=== PATIENT | female | born 1995 | race Caucasian/White ===

== ENCOUNTER 2016-07-09 19:44 | Inpatient (IN) | payer BC ==
[2016-07-09 20:52] LABS: ROM Internal QC QC Line Present
[2016-07-09 21:17] LABS: Hematocrit 42 % (35-47); Hemoglobin 13.9 g/dl (12.0-16.0); Mean Corpuscular HGB Conc 33 g/dl (31-36); Mean Corpuscular Hemoglobin 32 pg (27-31); Mean Corpuscular Volume 97 fL (80-97); Mean Platelet Volume 8 um3 (7.4-10.4); Red Blood Count 4.29 10^6/ul (4.0-5.4); Red Cell Distribution Width 13 % (10.5-15); White Blood Count 18.3 10^3/ul (3.5-10.8)
[2016-07-09] MEDS ORDERED: OBEPIDURAL* 250 ML ONE (21:29)
[2016-07-09] MEDS ORDERED: Phenylephrine IV* 40 MCG/ML 10 ML SYRINGE IV PUSH PRN ×2 (22:19)
[2016-07-09] MEDS ORDERED: OBEPIDURAL* 250 ML EPIDURAL SCH (23:00)
[2016-07-10] MEDS ORDERED: Oxytocin in LR* 20 UNITS/1,000 ML BAG IVPB ONE (03:29)
[2016-07-10] MEDS ORDERED: Glycerin ADULT SUPP PR PRN (03:45)
[2016-07-10] MEDS ORDERED: Dibucaine 1% 28.35 GM TUBE PR PRN (03:45)
[2016-07-10] MEDS ORDERED: Acetaminophen TAB* 325 MG PO PRN (03:45)
[2016-07-10] MEDS ORDERED: Witch Hazel PAD* JAR TOPICAL PRN (03:45)
[2016-07-10] MEDS ORDERED: Oxytocin in LR* 20 UNITS/1,000 ML BAG IVPB SCH (04:00)
[2016-07-10] MEDS: Ibuprofen TAB* 600 MG PO PRN ×3 (05:57→18:18)
[2016-07-10] MEDS: Docusate CAP* 100 MG PO SCH ×3 (08:56→20:51)
[2016-07-10] MEDS: Simethicone CHEW TAB* 80 MG PO SCH (19:22)
[2016-07-11] MEDS: Ibuprofen TAB* 600 MG PO PRN ×4 (01:01→21:06)
[2016-07-11 08:49] LABS: Hematocrit 35 % (35-47); Hemoglobin 11.8 g/dl (12.0-16.0); Mean Corpuscular HGB Conc 34 g/dl (31-36); Mean Corpuscular Hemoglobin 33 pg (27-31); Mean Corpuscular Volume 98 fL (80-97); Mean Platelet Volume 8 um3 (7.4-10.4); Red Blood Count 3.59 10^6/ul (4.0-5.4); Red Cell Distribution Width 14 % (10.5-15)
[2016-07-11] MEDS ORDERED: Ferrous Gluconate TAB* 324 MG TAB PO SCH (09:00)
[2016-07-11] MEDS: Docusate CAP* 100 MG PO SCH ×3 (10:03→21:07)
[2016-07-12 08:39] VITALS: BP 113/62
[2016-07-12] MEDS: Docusate CAP* 100 MG PO SCH (09:00)
== END 2016-07-12 11:49 | disposition home or self-care (01) | DRG 560 ==
LOC: MCHOBOUT 19:44 → MCHOB 21:18
PROVIDERS: ADMIT Obstetrics & Gynecology; ATTEND Obstetrics & Gynecology
PROC: 10E0XZZ Delivery of Products of Conception, External Approach (ICD-10-PCS; principal; 2016-07-10)
DX: O48.0 Post-term pregnancy (principal); O99.344 Other mental disorders complicating childbirth; F32.9 Major depressive disorder, single episode, unspecified; G43.909 Migraine, unspecified, not intractable, without status migrainosus; F41.9 Anxiety disorder, unspecified; Z3A.41 41 weeks gestation of pregnancy; Z37.0 Single live birth
CPT/HCPCS: 36415; 84112; 85025; 85027; 86850; 86900; 86901; A9270-GY

== ENCOUNTER → 2017-01-15 15:21 | Emergency (ER) | payer BC ==
[~2017-01-15 15:21] MED LIST: LORazepam TAB(*) 1 MG PO ONE; Sulfamethox/Trimethoprim DS 800/160* TAB PO ONE
[2017-01-15 17:10] LABS: Urine Bacteria 1+ (Absent); Urine Bilirubin Negative (Negative); Urine Glucose Negative (Negative); Urine Nitrite Negative (Negative)
[2017-01-15 17:12] LABS: Hematocrit 41 % (35-47); Hemoglobin 13.9 g/dl (12.0-16.0); Mean Corpuscular HGB Conc 34 g/dl (31-36); Mean Corpuscular Hemoglobin 32 pg (27-31); Mean Corpuscular Volume 94 fL (80-97); Mean Platelet Volume 8 um3 (7.4-10.4); Red Blood Count 4.34 10^6/ul (4.0-5.4); Red Cell Distribution Width 13 % (10.5-15); White Blood Count 7.7 10^3/ul (3.5-10.8)
[2017-01-15 17:14] LABS: Benzodiazepine Urine Screen None Detected (None Detect)
[2017-01-15 17:27] LABS: ALT 9 U/L (7-52); AST 15 U/L (13-39); Albumin 4.3 g/dL (3.2-5.2); Alkaline Phosphatase 53 U/L (34-104); Anion Gap 7 mmol/L (2-11); BUN/Creatinine Ratio 16.7 (8-20); Blood Urea Nitrogen 15 mg/dL (6-24); CO2 Carbon Dioxide 27 mmol/L (22-32); Calcium 9.9 mg/dL (8.6-10.3); Chloride 104 mmol/L (101-111); EGFR African American 101.6 (>60); Globulin 2.8 g/dL (2-4); Glucose 84 mg/dL (70-100); Potassium 3.6 mmol/L (3.5-5.0); Sodium 138 mmol/L (133-145); Total Protein 7.1 g/dL (6.4-8.9)
[2017-01-15 18:01] LABS: Acetaminophen < 15 mcg/mL; Alcohol < 10 mg/dL (<10); Salicylate < 2.50 mg/dL (<30)
[2017-01-15 18:15] LABS: TSH (Thyroid Stimulating Horm) 1.05 mcIU/mL (0.34-5.60)
--- NOTE | 2017-01-15 18:21 | ED ---
Gregoria Beasley Thomas, scribed for Gume Ortez MD on 01/15/17 at 1711 . Psychiatric Complaint - HPI Summary HPI Summary: The pt is a 21 y/o F referred from [facility] c/o a decreased desire to eat food for the last six months. When asked if she wants to harm herself, she responds that is pretty much what I am doing right now. She does not take laxatives. She does not have any medical complaints. She denies taking any medication recently or any other attempts to hurt herself. Last night, she had a discussion with her fianc about this long-standing issue , prompting an ED visit. PMHx: anorexia nervosa. PSHx: wisdom teeth removal. SHx : current smoker, no alcohol use, marijuana use. FHx: depression. - History Of Current Complaint Chief Complaint: EDMentalHealth Time Seen by Provider: 01/15/17 16:46 Hx Obtained From: Patient Onset/Duration: Lasting Weeks - onset 6 months ago, Still Present Timing: Constant Aggravating Factor(s): Nothing Alleviating Factor(s): Nothing Associated Signs And Symptoms: Positive: Appetite Change - decreased desire to eat food over the last six months Related History: Positive For: Prior Psychiatric Issues - Prior anorixia nervosa Has Suicidal: Denies: Thoughts - When asked if she wants to harm herself, she responds that is pretty much what I am doing right now. - Allergies/Home Medications Allergies/Adverse Reactions: Allergies Allergy/AdvReac Type Severity Reaction Status Date / Time No Known Allergies Allergy Verified 01/15/17 15:30 PMH/Surg Hx/FS Hx/Imm Hx Previously Healthy: No Endocrine/Hematology History: Denies: Hx Diabetes Psychiatric History: Reports: Hx Anxiety, Hx Eating Disorder - anorexia, Hx Depression - Surgical History Surgery Procedure, Year, and Place: wisdom teeth removal Infectious Disease History: Yes Infectious Disease History: Denies: Traveled Outside the [place] in Last 30 Days - Family History Known Family History: Positive: Other - Depression - Social History Occupation: Employed Full-time - at [employer] Alcohol Use: None Hx Substance Use: Yes Substance Use Type: Reports: Marijuana Hx Tobacco Use: Yes Smoking Status (MU): Current Every Day Smoker Have You Smoked in the Last Year: No Review of Systems Negative: Fever Psychological: Other - Decreased desire to eat (for last six months) All Other Systems Reviewed And Are Negative: Yes Physical Exam Triage Information Reviewed: Yes Vital Signs On Initial Exam: Initial Vitals Temp Pulse Resp BP Pulse Ox 98.1 F 72 16 128/73 98 01/15/17 15:30 01/15/17 15:30 01/15/17 15:30 01/15/17 15:30 01/15/17 15:30 Vital Signs Reviewed: Yes Appearance: Positive: Thin Skin: Positive: Warm, Skin Color Reflects Adequate Perfusion Head/Face: Positive: Normal Head/Face Inspection Eyes: Positive: EOMI ENT: Positive: Normal ENT inspection Neck: Positive: Nontender Respiratory/Lung Sounds: Positive: Clear to Auscultation, Breath Sounds Present Cardiovascular: Positive: RRR. Negative: Murmur Abdomen Description: Positive: Nontender Musculoskeletal: Positive: Normal, Strength/ROM Intact Neurological: Positive: Sensory/Motor Intact, Alert, Oriented to Person Place, Time, CN Intact II-III Psychiatric: Positive: Depressed - [place] Coma Scale Best Eye Response: 4 - Spontaneous Best Motor Response: 6 - Obeys Commands Best Verbal Response: 5 - Oriented Coma Scale Total: 15 Diagnostics - Vital Signs Vital Signs Temp Pulse Resp BP Pulse Ox 01/15/17 15:30 98.1 F 72 16 128/73 98 - Laboratory Lab Results: Lab Results 01/15/17 01/15/17 01/15/17 Range/Units 15:50 15:50 17:00 WBC (3.5-10.8) 10^3/ul RBC (4.0-5.4) 10^6/ul Hgb (12.0-16.0) g/dl Hct (35-47) % MCV (80-97) fL MCH (27-31) pg MCHC (31-36) g/dl RDW (10.5-15) % Plt Count (150-450) 10^3/ul MPV (7.4-10.4) um3 Neut % (Auto) (38-83) % Lymph % (Auto) (25-47) % [place] % (Auto) (1-9) % Eos % (Auto) (0-6) % Baso % (Auto) (0-2) % Absolute Neuts (auto) (1.5-7.7) 10^3/ul Absolute Lymphs (auto) (1.0-4.8) 10^3/ul Absolute Monos (auto) (0-0.8) 10^3/ul Absolute Eos (auto) (0-0.6) 10^3/ul Absolute Basos (auto) (0-0.2) 10^3/ul Absolute Nucleated RBC 10^3/ul Nucleated RBC % Sodium 138 (133-145) mmol/L Potassium 3.6 (3.5-5.0) mmol/L Chloride 104 (101-111) mmol/L Carbon Dioxide 27 (22-32) mmol/L Anion Gap 7 (2-11) mmol/L BUN 15 (6-24) mg/dL Creatinine 0.90 (0.51-0.95) mg/dL Est GFR ( Amer) 101.6 (>60) Est GFR (Non-Af Amer) 79.0 (>60) BUN/Creatinine Ratio 16.7 (8-20) Glucose 84 (70-100) mg/dL Calcium 9.9 (8.6-10.3) mg/dL Magnesium 2.0 (1.9-2.7) mg/dL Total Bilirubin 0.50 (0.2-1.0) mg/dL AST 15 (13-39) U/L ALT 9 (7-52) U/L Alkaline Phosphatase 53 (34-104) U/L Total Protein 7.1 (6.4-8.9) g/dL Albumin 4.3 (3.2-5.2) g/dL Globulin 2.8 (2-4) g/dL Albumin/Globulin Ratio 1.5 (1-3) TSH 1.05 (0.34-5.60) mcIU/mL Urine Color Adriana Urine Appearance Turbid Urine pH 7.0 (5-9) Ur Specific [place] 1.021 (1.010-1.030) Urine Protein 2+(100 mg/dl) H (Negative) Urine Ketones Trace H (Negative) Urine Blood Negative (Negative) Urine Nitrate Negative (Negative) Urine Bilirubin Negative (Negative) Urine Urobilinogen Positive H (Negative) Ur Leukocyte Esterase 3+ H (Negative) Urine WBC (Auto) 3+(>20/hpf) H (Absent) Urine RBC (Auto) Absent (Absent) Ur Squamous Epith Cells Present H (Absent) Ur Renal Epithelial Cell Present H (Absent) Urine Bacteria 1+ H (Absent) Urine Glucose Negative (Negative) Salicylates < 2.50 (<30) mg/dL Urine Opiates Screen None detected (None Detect) Acetaminophen < 15 mcg/mL Ur Barbiturates Screen None detected (None Detect) Ur Phencyclidine Scrn None detected (None Detect) Ur Amphetamines Screen None detected (None Detect) U Benzodiazepines Scrn None detected (None Detect) Urine Cocaine Screen Presumptive positive H (None Detect) U Cannabinoids Screen Presumptive positive H (None Detect) Serum Alcohol < 10 (<10) mg/dL 01/15/17 Range/Units 17:00 WBC 7.7 (3.5-10.8) 10^3/ul RBC 4.34 (4.0-5.4) 10^6/ul Hgb 13.9 (12.0-16.0) g/dl Hct 41 (35-47) % MCV 94 (80-97) fL MCH 32 H (27-31) pg MCHC 34 (31-36) g/dl RDW 13 (10.5-15) % Plt Count 249 (150-450) 10^3/ul MPV 8 (7.4-10.4) um3 Neut % (Auto) 51.0 (38-83) % Lymph % (Auto) 15.5 L (25-47) % [place] % (Auto) 9.9 H (1-9) % Eos % (Auto) 22.2 H (0-6) % Baso % (Auto) 1.4 (0-2) % Absolute Neuts (auto) 3.9 (1.5-7.7) 10^3/ul Absolute Lymphs (auto) 1.2 (1.0-4.8) 10^3/ul Absolute Monos (auto) 0.8 (0-0.8) 10^3/ul Absolute Eos (auto) 1.7 H (0-0.6) 10^3/ul Absolute Basos (auto) 0.1 (0-0.2) 10^3/ul Absolute Nucleated RBC 0.01 10^3/ul Nucleated RBC % 0.1 Sodium (133-145) mmol/L Potassium (3.5-5.0) mmol/L Chloride (101-111) mmol/L Carbon Dioxide (22-32) mmol/L Anion Gap (2-11) mmol/L BUN (6-24) mg/dL Creatinine (0.51-0.95) mg/dL Est GFR ( Amer) (>60) Est GFR (Non-Af Amer) (>60) BUN/Creatinine Ratio (8-20) Glucose (70-100) mg/dL Calcium (8.6-10.3) mg/dL Magnesium (1.9-2.7) mg/dL Total Bilirubin (0.2-1.0) mg/dL AST (13-39) U/L ALT (7-52) U/L Alkaline Phosphatase (34-104) U/L Total Protein (6.4-8.9) g/dL Albumin (3.2-5.2) g/dL Globulin (2-4) g/dL Albumin/Globulin Ratio (1-3) TSH (0.34-5.60) mcIU/mL Urine Color Urine Appearance Urine pH (5-9) Ur Specific [place] (1.010-1.030) Urine Protein (Negative) Urine Ketones (Negative) Urine Blood (Negative) Urine Nitrate (Negative) Urine Bilirubin (Negative) Urine Urobilinogen (Negative) Ur Leukocyte Esterase (Negative) Urine WBC (Auto) (Absent) Urine RBC (Auto) (Absent) Ur Squamous Epith Cells (Absent) Ur Renal Epithelial Cell (Absent) Urine Bacteria (Absent) Urine Glucose (Negative) Salicylates (<30) mg/dL Urine Opiates Screen (None Detect) Acetaminophen mcg/mL Ur Barbiturates Screen (None Detect) Ur Phencyclidine Scrn (None Detect) Ur Amphetamines Screen (None Detect) U Benzodiazepines Scrn (None Detect) Urine Cocaine Screen (None Detect) U Cannabinoids Screen (None Detect) Serum Alcohol (<10) mg/dL Result Diagrams: 01/15/17 17:00 01/15/17 17:00 Lab Statement: Any lab studies that have been ordered have been reviewed, and results considered in the medical decision making process. Course/Dx - Course Assessment/Plan: The pt is a 21 y/o F with a decreased desire to eat food for the last six months. She denies SI except that is what Im doing [by not eating ]. She denies medical complaints, recent medication use, or attempts to hurt herself. Bloodwork and UA were obtained. Urine drug screen is positive for cocaine and cannabinoids. - Differential Dx/Clinical Impression Provider Diagnosis: Anorexia nervosa, Suicidal ideation, UTI (urinary tract infection) Discharge - Discharge Plan Condition: Good Disposition: OTHER [facility]charge Disposition Comment[facility] Referrals: Katherine Cosme, DEMETRI [Primary Care Provider] - The documentation as recorded by the Gregoria woods Thomas accurately reflects the service I personally performed and the decisions made by me, Gume Ortez MD.
[2017-01-16 11:05] VITALS: BP 124/78
--- NOTE | 2017-01-17 03:04 | ED ---
Pat Beasley Alfonso, scribed for Anayeli Philippe MD on 01/15/17 at 1999 . Progress - Progress Note Progress Note: Reevaluation at 1955 after sign out [address] Dr[address] Ortez at change of shift. Plan for moving forward with a MHE discussed with the patient. She reports a migraine headache, photophobia, and anxiety. The patient is tearful. 0700: plan per ALBINO Perry, per Dr. Blood is to have pt follow up as an outpt with the [facility]. Course/Dx - Diagnoses Provider Diagnoses: Anorexia nervosa, Suicidal ideation, UTI (urinary tract infection) The documentation as recorded by the Pat woods Alfonso accurately reflects the service I personally performed and the decisions made by , Anayeli Philippe MD.
--- NOTE | 2017-01-17 20:30 | PN ---
Progress Note - Progress Note Date of Service: 01/15/17 Note: preliminary results grew >100,000 of gram negative bacilli. Patient was diagnosed and treated while in ED with bactrim for UTI. however does not appear any prescription was sent to pharmacy to take outpatient as she was later discharged. attempted to call patient at 3:00pm and left voicemail. patient did not call back. will send bactrim script for UTI to pharmacy and send letter to patient. will also wait for final sensitivity results and attempt to recall.
== END ==
LOC: ED 15:21
DX: F50.00 Anorexia nervosa, unspecified (principal); R45.851 Suicidal ideations; N39.0 Urinary tract infection, site not specified; F41.9 Anxiety disorder, unspecified; F32.9 Major depressive disorder, single episode, unspecified; F17.200 Nicotine dependence, unspecified, uncomplicated; B96.89 Other specified bacterial agents as the cause of diseases classified elsewhere
CPT/HCPCS: 36415; 80053; 80307; 80320; 80329; 81003; 81015; 83735; 84443; 84702; 85025; 87077; 87086; 87186; 99283; A9270-GY; G0480

== ENCOUNTER 2017-07-27 09:30 | Emergency (ER) | payer BC ==
[2017-07-27] MEDS ORDERED: NS 0.9% 1000 ML* 1,000 ML IV ONE (11:29)
[2017-07-27] MEDS ORDERED: Ondansetron INJ* 2 MG/ML VIAL IV ONE (11:29)
--- NOTE | 2017-07-27 12:05 | RAD ---
HISTORY: Pelvic pain COMPARISONS: None TECHNIQUE: Multiple transverse and longitudinal ultrasound images were obtained of the pelvis using grayscale, color Doppler, and spectral Doppler imaging using the endovaginal transducer. FINDINGS: UTERUS: The uterus measures 7.2 x 3.5 x 4.9 cm. The uterus is normal in shape, size, contour, and echotexture. ENDOMETRIUM: The endometrial stripe is smooth. The endometrium measures 0.4 cm in thickness. CUL-DE-SAC: There is no free fluid within the cul-de-sac. RIGHT OVARY: The right ovary measures 2.5 x 1.7 x 2.5 cm. Multiple follicles are noted. Normal arterial and venous waveforms are identifiable within the ovary on spectral Doppler imaging. LEFT OVARY: The left ovary measures 3.9 x 1.9 x 3 cm. Multiple follicles are noted. Normal arterial and venous waveforms are identifiable within the ovary on spectral Doppler imaging. BLADDER: The bladder is not well visualized. OTHER: None IMPRESSION: UNREMARKABLE ULTRASOUND OF THE PELVIS. NO SONOGRAPHIC FEATURES OF TORSION. PLEASE NOTE THAT PARTIAL OR INTERMITTENT TORSION MAY BE SONOGRAPHICALLY NORMAL.
[2017-07-27] MEDS ORDERED: Ketorolac INJ* 30 MG/ML 1 ML VIAL IV PUSH ONE (12:07)
[2017-07-27] MEDS ORDERED: Ketorolac INJ* 30 MG/ML 1 ML VIAL ONE (12:09)
--- NOTE | 2017-07-27 12:10 | ED ---
GI/ HPI - HPI Summary HPI Summary: 21-year-old female presents with pelvic pain for the past week. She states that it is in bilateral lower quadrant and radiates to her back. She denies any pain urination. She admits to some vaginal discharge. She denies any frequency urgency. She states they're treating her for UTI; she does not have one. She is currently on bactrim. States she had normal ultrasound of her kidneys. She's never had this pain before. She states the pain comes and goes. She has had a normal appetite. She admits to nausea but denies any vomiting. She denies any diarrhea constipation. Denies any previous surgeries. - History of Current Complaint Chief Complaint: EDAbdPain Time Seen by Provider: 07/27/17 11:07 Stated Complaint: ABD PAIN-CIFUENTES SENT Pain Intensity: 6 - Allergy/Home Medications Allergies/Adverse Reactions: Allergies Allergy/AdvReac Type Severity Reaction Status Date / Time sulfamethoxazole Allergy Vomiting Verified 07/27/17 11:39 [From Bactrim] trimethoprim [From Bactrim] Allergy Vomiting Verified 07/27/17 11:39 PMH/Surg Hx/FS Hx/Imm Hx Endocrine/Hematology History: Denies: Hx Diabetes Psychiatric History: Reports: Hx Anxiety, Hx Eating Disorder - Never officially diagnosed, Hx Depression - Surgical History Surgery Procedure, Year, and Place: wisdom teeth removal Infectious Disease History: No Infectious Disease History: Denies: Traveled Outside the [place] in Last 30 Days - Family History Known Family History: Positive: Other - Depression - Social History Alcohol Use: None Hx Substance Use: Yes Substance Use Type: Reports: Marijuana Hx Tobacco Use: Yes Smoking Status (MU): Current Every Day Smoker Have You Smoked in the Last Year: No Review of Systems Negative: Fever Negative: Chest Pain Negative: Shortness Of Breath Positive: Abdominal Pain, Nausea. Negative: Vomiting, Diarrhea Negative: dysuria All Other Systems Reviewed And Are Negative: Yes Physical Exam Triage Information Reviewed: Yes Vital Signs On Initial Exam: Initial Vitals Temp Pulse Resp BP Pulse Ox 98.3 F 66 16 105/65 97 07/27/17 09:35 07/27/17 09:35 07/27/17 09:35 07/27/17 09:35 07/27/17 09:35 Vital Signs Reviewed: Yes Appearance: Positive: Well-Appearing Skin: Positive: Warm, Dry Head/Face: Positive: Normal Head/Face Inspection Eyes: Positive: Normal, Conjunctiva Clear Respiratory/Lung Sounds: Positive: Clear to Auscultation, Breath Sounds Present Cardiovascular: Positive: Normal, RRR Abdomen Description: Positive: Soft, Other: - tenderness suprapubic greatest tenderness, tenderness LLQ, neg obturator Bowel Sounds: Positive: Present Pelvic Exam: Positive: External Exam Normal, Speculum Exam Normal, Blood, Tender w/ Cervical Motion Musculoskeletal: Positive: Normal Neurological: Positive: Normal Psychiatric: Positive: Normal Diagnostics - Vital Signs Vital Signs Temp Pulse Resp BP Pulse Ox 07/27/17 09:35 98.3 F 66 16 105/65 97 - Laboratory Result Diagrams: 07/27/17 12:03 07/27/17 12:03 Lab Statement: Any lab studies that have been ordered have been reviewed, and results considered in the medical decision making process. - Ultrasound No standard instances Ultrasound Interpretation: No Acute Changes Ultrasound Interpretation Completed By: Radiologist Re-Evaluation - Re-Evaluation First Eval Re-Evaluation Time: 12:25 Change: Improved Comment: no pain in RLQ GIGU Course/Dx - Course Course Of Treatment: 21-year-old female presents with pelvic pain for the past week. She states that it is in bilateral lower quadrant and radiates to her back. She denies any pain urination. She admits to some vaginal discharge. She denies any frequency urgency. She states they're treating her for UTI; she does not have one. She is currently on bactrim. States she had normal ultrasound of her kidneys. She's never had this pain before. She states the pain comes and goes. She has had a normal appetite. She admits to nausea but denies any vomiting. She denies any diarrhea constipation. Denies any previous surgeries. On exam tenderness suprapubic and left lower quadrant. Genital abdominal ultrasound normal. Labs white blood cell count normal. CRP elevated. On pelvic has positive cervical motion tenderness. Has bloody vaginal discharge. Urine possible UTI but likely contaminant but we'll treat with a gram of Rocephin to cover. Patient is still currently on Bactrim. We' ll treat with doxycycline and Flagyl for PID. Do not suspect appendicitis this pain is not really in the right lower quadrant. Lab work does not have a wbc elevated. Pain is likely due to the PID. Patient understands and agrees with plan. - Diagnoses Differential Diagnoses - Female: Gastroenteritis (Viral), Ovarian Torsion, Pelvic Inflammatory Disease, Urinary Tract Infection Provider Diagnoses: Abdominal pain, PID (pelvic inflammatory disease) Discharge - Sign-Out/Discharge Documenting (check all that apply): Discharge - Discharge Plan Condition: Good Disposition: HOME Prescriptions: DOXYcycline CAP(*) [DOXYcycline 100MG CAP(*)] 100 mg PO BID #27 cap metroNIDAZOLE [Flagyl] 500 mg PO BID #27 tablet Ondansetron ODT TAB* [Zofran 4 MG Odt TAB*] 4 mg PO Q6H PRN #16 tab.odt PRN Reason: Nausea Patient Education Materials: Pelvic Inflammatory Disease (ED) Referrals: Katherine Cosme NP [Primary Care Provider] - Additional Instructions: Take Flagyl twice a day for 14 days Take doxycycline twice a day for 14 days, wear sunscreen and take with food Take Zofran every 6 hours for nausea Take Tylenol or ibuprofen for fever and pain every 6 hours Follow up with primary care physician within 5 days Return to ED if develop any new or worsening symptoms - Billing Disposition and Condition Condition: GOOD Disposition: HOME
[2017-07-27 12:14] LABS: ABS Basophils 0.1 10^3/ul (0-0.2); ABS Eosinophils 0.1 10^3/ul (0-0.6); ABS Lymphocytes 1.9 10^3/ul (1.0-4.8); ABS Monocytes 0.7 10^3/ul (0-0.8); ABS Neutrophils 4.4 10^3/ul (1.5-7.7); ABS Nucleated RBC 0 10^3/ul; Eosinophil % 1.6 % (0-6); Hematocrit 38 % (35-47); Hemoglobin 13.3 g/dl (12.0-16.0); Lymphocyte % 26.4 % (25-47); Mean Corpuscular HGB Conc 35 g/dl (31-36); Mean Corpuscular Hemoglobin 33 pg (27-31); Mean Corpuscular Volume 96 fL (80-97); Mean Platelet Volume 7.5 um3 (7.4-10.4); Nucleated Red Blood Cells % 0.1; Platelet Count 356 10^3/ul (150-450); Red Blood Count 4.01 10^6/ul (4.0-5.4); Red Cell Distribution Width 14 % (10.5-15); White Blood Count 7.1 10^3/ul (3.5-10.8)
[2017-07-27 12:32] LABS: Urine Appearance Cloudy; Urine Blood 3+ (Negative); Urine Color Yellow; Urine Ketones Negative (Negative); Urine Protein Negative (Negative); Urine Specific Gravity 1.004 (1.010-1.030); Urine Urobilinogen Negative (Negative)
[2017-07-27] MEDS ORDERED: metroNIDAZOLE TAB* 250 MG PO ONE (12:37)
[2017-07-27] MEDS ORDERED: DOXYcycline CAP(*) 100 MG PO ONE (12:37)
[2017-07-27] MEDS ORDERED: cefTRIAXone(*) 1 GM in NS 0.9% 50 ML* 50 ML IVPB ONE (12:37)
[2017-07-27] MEDS ORDERED: Potassium Chlor TAB* 20 MEQ TAB.ER PO ONE (13:03)
[2017-07-27 13:52] VITALS: BP 109/69
== END 2017-07-27 13:51 | disposition home or self-care (01) ==
LOC: ED 09:30
DX: N73.9 Female pelvic inflammatory disease, unspecified (principal); F17.200 Nicotine dependence, unspecified, uncomplicated
CPT/HCPCS: 36415; 76830; 80053; 81003; 81015; 83690; 84702; 85025; 86141; 87086; 87480; 87491; 87510; 87591; 87661; 96360; 96374; 96375; 99283; A9270-GY; J0696; J1885; J2405

== ENCOUNTER 2018-12-02 18:38 | Emergency (ER) | payer BC ==
--- NOTE | 2018-12-02 19:03 | ED ---
Throat Pain/Nasal Congestion - HPI Summary HPI Summary: Patient complains of right eye pain 3 hours and possible right eye infection or abrasion from wearing contacts. Denies trauma,. Denies any other pain injury or symptoms. - History of Current Complaint Chief Complaint: EDEyeProblem Time Seen by Provider: 12/02/18 18:58 Hx Obtained From: Patient Onset/Duration: Sudden Onset, Lasting Hours Severity: Moderate Associated Signs And Symptoms: Positive: Negative Cough: None - Allergies/Home Medications Allergies/Adverse Reactions: Allergies Allergy/AdvReac Type Severity Reaction Status Date / Time sulfamethoxazole Allergy Vomiting Verified 07/27/17 11:39 [From Bactrim] trimethoprim [From Bactrim] Allergy Vomiting Verified 07/27/17 11:39 PMH/Surg Hx/FS Hx/Imm Hx Endocrine/Hematology History: Denies: Hx Diabetes Cardiovascular History: Denies: Hx Pacemaker/ICD History: Denies: Hx Dialysis Sensory History: Denies: Hx Eye Prosthesis Opthamlomology History: Denies: Hx Legally Blind EENT History: Denies: Hx Deafness Neurological History: Denies: Hx Dementia Psychiatric History: Reports: Hx Anxiety, Hx Eating Disorder - Never officially diagnosed, Hx Depression - Surgical History Surgery Procedure, Year, and Place: wisdom teeth removal Infectious Disease History: No Infectious Disease History: Denies: Traveled Outside the [place] in Last 30 Days - Family History Known Family History: Positive: Other - Depression - Social History Alcohol Use: None Hx Substance Use: Yes Substance Use Type: Reports: Marijuana Hx Tobacco Use: Yes Smoking Status (MU): Current Every Day Smoker Have You Smoked in the Last Year: No Review of Systems Constitutional: Negative Positive: Other ENT: Negative Cardiovascular: Negative Respiratory: Negative Gastrointestinal: Negative Genitourinary: Negative Musculoskeletal: Negative Skin: Negative Neurological: Negative Psychological: Normal All Other Systems Reviewed And Are Negative: Yes Physical Exam - Summary Physical Exam Summary: Corneal abrasion noted on exam of right eye. No discharge, foreign body noted. Triage Information Reviewed: Yes Vital Signs On Initial Exam: Initial Vitals Temp Pulse Resp BP Pulse Ox 99.2 F 81 18 138/105 100 12/02/18 18:41 12/02/18 18:41 12/02/18 18:41 12/02/18 18:41 12/02/18 18:41 Vital Signs Reviewed: Yes Appearance: Positive: Well-Appearing Skin: Positive: Warm Head/Face: Positive: Normal Head/Face Inspection Eyes: Positive: EOMI, ROXANN, Conjunctiva Inflammed. Negative: Discharge Neck: Positive: Supple Respiratory/Lung Sounds: Positive: Clear to Auscultation Cardiovascular: Positive: Normal Abdomen Description: Positive: Nontender Musculoskeletal: Positive: Strength/ROM Intact Neurological: Positive: Normal Psychiatric: Positive: Normal AVPU Assessment: Alert - [place] Coma Scale Best Eye Response: 4 - Spontaneous Best Motor Response: 6 - Obeys Commands Best Verbal Response: 5 - Oriented Coma Scale Total: 15 Diagnostics - Vital Signs Vital Signs Temp Pulse Resp BP Pulse Ox 12/02/18 18:41 99.2 F 81 18 138/105 100 - Laboratory Lab Statement: Any lab studies that have been ordered have been reviewed, and results considered in the medical decision making process. EENT Course/Dx - Course Course Of Treatment: Patient complains of right eye pain 3 hours and possible right eye infection or abrasion from wearing contacts. Denies trauma,. Denies any other pain injury or symptoms. Vital signs within normal limits. Positive corneal abrasion on exam. Gentamicin ophthalmic solution 2 drops every 4 hours. Follow-up with ophthalmology - Diagnoses Provider Diagnoses: Corneal abrasion, right Discharge - Sign-Out/Discharge Documenting (check all that apply): Patient Departure Patient Received Moderate/Deep Sedation with Procedure: No - Discharge Plan Condition: Stable Disposition: HOME Patient Education Materials: Corneal Abrasion (ED) Referrals: Katherine Cosme NP [Primary Care Provider] - Filippo Swan MD [Medical Doctor] - Additional Instructions: 2 drops antibiotic solution in right eye every 4 hours for 5 days. 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 Swan for further evaluation of right eye. - Billing Disposition and Condition Condition: STABLE Disposition: Home
[2018-12-02] MEDS ORDERED: Tetracaine 0.5% OPTH.SOL 4 ML* 1 DROP BTL RIGHT EYE ONE (19:25)
[2018-12-02] MEDS ORDERED: Tetracaine 0.5% OPTH.SOL 4 ML* 1 DROP BTL SCH (19:30)
[2018-12-02] MEDS: Fluorescein Sodium TOPICAL* 1 MG TEST STRIP OPHTHALMIC ONE ×2 (19:31→19:45)
[2018-12-02] MEDS ORDERED: Gentamicin 0.3% OPHTH.SOLN* 5 ML BTL RIGHT EYE SCH (20:00)
[2018-12-02 20:02] VITALS: BP 116/80
== END 2018-12-02 20:01 | disposition home or self-care (01) ==
LOC: ED 18:38
DX: S05.01XA Injury of conjunctiva and corneal abrasion without foreign body, right eye, initial encounter (principal); X58.XXXA Exposure to other specified factors, initial encounter; Y92.9 Unspecified place or not applicable; F41.9 Anxiety disorder, unspecified; F17.210 Nicotine dependence, cigarettes, uncomplicated; Z88.1 Allergy status to other antibiotic agents; Z88.2 Allergy status to sulfonamides
CPT/HCPCS: 99282; A9270-GY

== ENCOUNTER 2019-02-14 14:13 | Emergency (ER) | payer BC ==
--- OUTSIDE RECORDS SUMMARY | 2019-02-14 14:50 | XMS REPORT | Summary of Care ---
:1995 Author Organization [facility] Address [address] [facility] [place] [id number] Care Team Providers Name Role Phone Mello Caballero MD Primary Care Provider Reason for Visit Reason Comments Urinary Tract Infection Panic Attack Encounter Details Date Type Department Care Team Description 12/17/2018 Office Visit [facility] Kathernie Cosme, Panic attacks ( Primary Dx); Practice [facility] Anxiety; [address] Acute [place]stit[place] [address] [phone] Allergies No Known Allergiesdocumented as of this encounter (statuses as of 12/17/2018) Medications Medication Sig Dispensed Refills Start Date End Date Status sumatriptan (IMITREX) Take 1 Tab by 30 Tab 0 07/12/2017 Active 100 MG Oral mouth NEEDED TabIndications: (headache). Take Migraine with aura and at first sign of without status headache - migrainosus, not repeat in 2 intractable hours if needed trazodone (DESYREL) 50 Take 1 Tab by 30 Tab 3 06/27/2018 Active MG Oral Tab mouth EVERY BEDTIME. ciprofloxacin (CIPRO) Take 1 Tab by 10 Tab 0 12/17/2018 12/22/2018 Active 250 MG Oral mouth TWICE TabIndications: Acute DAILY for 5 cystitis without days. hematuria sertraline (ZOLOFT) 50 Take 1 Tab by 30 Tab 5 12/17/2018 Active MG Oral mouth DAILY. TabIndications: Anxiety LORazepam (ATIVAN) 1 Take 1 Tab by 30 Tab 0 12/17/2018 Active MG Oral mouth TWO TIMES TabIndications: Panic DAILY NEEDED attacks (panic). Max Daily Amount: 2 mg. documented as of this encounter (statuses as of 12/17/2018) Active Problems Problem Noted Date Eating disorder 10/07/2015 Overview: Seeing Ibeth Waller at [facility]. Phone [phone]. Generalized anxiety disorder 12/28/2014 Panic attacks 12/28/2014 documented as of this encounter (statuses as of 12/17/2018) Resolved Problems Problem Noted Date Resolved Date control 12/28/2014 11/06/2015 Overview: Mirena IUD placed summer 2013. documented as of this encounter (statuses as of 12/17/2018) Immunizations Name Administration Dates Next Due Influenza (IM) Preservative Free 01/17/2017 documented as of this encounter Social History Tobacco Use Types Packs/Day Years Used Date Current Every Day Smoker Cigarettes 0.1 2 Smokeless Tobacco: Never Used Alcohol Use Drinks/Week oz/Week Comments Yes 0 Standard drinks or equivalent 0.0 ocassionl,social Sex Assigned at Date Recorded Not on file Job Start Date Occupation Industry Not on file Not on file Not on file Travel History Travel Start Travel End No recent travel history available. documented as of this encounter Last Filed Vital Signs Vital Sign Reading Time Taken Comments Blood Pressure 132/74 12/17/2018 11:45 AM EDT Pulse 81 12/17/2018 11:45 AM EDT Temperature 37.8 12/17/2018 11:45 C (100 AM EDT F) Respiratory Rate - - Oxygen Saturation 99% 12/17/2018 11:45 room air AM EDT Inhaled Oxygen - - Concentration Weight 64.8 kg (142 lb 12.8 12/17/2018 11:45 fully clothed w/shoes oz) AM EDT Height - - Body Mass Index 23.05 06/27/2018 11:24 AM EDT documented in this encounter Patient Instructions Patient InstructionsKatherine Cosme FNP - 12/17/2018 11:40 AM EDTIt is advised that you increase fluid intake to flush antibiotic and infection out of urinary tract. Complete all antibiotic. Your urine is being sent for a culture to be sure that the antibiotic I chose for you will be the most effective. If not, I will contact you to change antibiotic. If you develop fever, abdominal or pelvic pain, nausea or flank pain, please let us know. Start sertraline daily for anxiety and use ativan as needed for panic Follow up in 1 monthElectronically signed by Katherine Cosme FNP at 2018 12:08 PM EDT documented in this encounter Progress Notes Katherine Cosme FNP - 12/17/2018 11:40 AM EDT PATIENT: Jenifer Garcia : 1995 DATE OF SERVICE: 12/17/2018 Chief Complaint Patient presents with Urinary Tract Infection Panic Attack SUBJECTIVE: Jenifer Garcia is a 23-y.o. female who is here with complaints of urine frequency and dysuria with lower pelvic cramps. No fever or chills. She is drinking a lot of water to help if UTI. [place] or flank pain. She has been having panic attacks. She has had in the past and used to take sertraline and ativan. She states when she gets a panic attack she gets shortness of breath and feels like she can't breath and feels hot all over. She can not focus on anything and just shuts down. No new triggers but is looking for work and having interviews. Patient Active Problem List Diagnosis Date Noted Eating disorder 10/07/2015 [facility] Phone [phone]. Generalized anxiety disorder 12/28/2014 Panic attacks 12/28/2014 Current Outpatient Medications Medication Sig ciprofloxacin (CIPRO) 250 MG Oral Tab Take 1 Tab by mouth TWICE DAILY for 5 days. LORazepam (ATIVAN) 1 MG Oral Tab Take 1 Tab by mouth TWO TIMES DAILY NEEDED (panic). Max Daily Amount: 2 mg. sertraline (ZOLOFT) 50 MG Oral Tab Take 1 Tab by mouth DAILY. sumatriptan (IMITREX) 100 MG Oral Tab Take 1 Tab by mouth NEEDED ( headache). Take at firstsign of headache - repeat in 2 hours if needed trazodone (DESYREL) 50 MG Oral Tab Take 1 Tab by mouth EVERY BEDTIME. No current facility-administered medications for this visit. OBJECTIVE: BP 132/74 (BP Location: Left arm, Patient Position: Sitting) | Pulse 81 | Temp 100 F (37.8 C) (Tympanic) | Wt 142 lb 12.8 oz (64.8 kg ) Comment: fully clothed w/shoes | SpO2 99% Comment: room air | BMI 23.05 kg/m Mental status exam; she is alert, orient to time, person and place. Normal thought content, speech, affect, mood and dress are noted. Chest is clear, no wheezing orrales. Normal symmetric air entry throughout both lung bhardwaj. Heart RRR. Urine dip without significant findings but very dilute from water intake. ASSESSMENT: ICD-9-CM ICD-10-CM 1. Panic attacks 300.01 F41.0 LORazepam (ATIVAN) 1 MG Oral Tab 2. Anxiety 300.00 F41.9 sertraline (ZOLOFT) 50 MG Oral Tab 3. Acute cystitis without hematuria 595.0 N30.00 ciprofloxacin (CIPRO) 250 MG Oral Tab Patient Instructions It is advised that you increase fluid intake to flush antibiotic and infection out of urinary tract. Complete all antibiotic. Your urine is being sent for a culture to be sure that the antibiotic I chose for you will be the most effective. If not, I will contact you to change antibiotic. If you develop fever, abdominal or pelvic pain, nausea or flank pain, please let us know. Start sertraline daily for anxiety and use ativan as needed for panic Follow up in 1 month Author: RUSS Perera 12/17/2018 12:13 documented in this encounter Plan of Treatment Date Type Specialty Care Team Description 01/16/2019 Office Visit [facility] Katherine Cosme FNP [address] [place] [address] [phone] Health Maintenance Due Date Last Done Comments PAP SMEAR 1995 PNEUMOCOCCAL 0-64 YRS (1 of 1 08/23/2001 - PPSV23) DEPRESSION SCREENING 2007 HPV IMMUNIZATION SERIES (1 - 08/23/2010 Female 3-dose series) INFLUENZA VACCINE (#1) 2018 01/17/2017 CHLAMYDIA SCREENING 03/05/2019 03/05/2018, 02/17/2015 MENINGOCOCCAL VACCINE IMM Aged Out No longer eligible based on patient's age to complete this topic documented as of this encounter Results Not on filedocumented in this encounter Visit Diagnoses Diagnosis Panic attacks - Primary Panic disorder without agoraphobia Anxiety Anxiety state, unspecified Acute cystitis without hematuria Acute cystitis documented in this encounter Insurance Payer Benefit Plan / Subscriber ID Effective Dates Phone Address Type Group [facility] xxxxxxxxxxxxxxx [facility] Blue t Cross/[employer] (Work) [place] [address] documented as of this encounter"
--- NOTE | 2019-02-14 15:26 | UC ---
- HPI Summary HPI Summary: 23-year-old female presents with left breast pain for the past 3 weeks. She states noticed some redness earlier today but does not have any currently. No nipple discharge. Patient is not currently breast-feeding. She states she has not noticed any masses. She states that it feels like her breast looks little different than normal. She does have family history of breast cancer. Denies any chest pain shortness breath. Denies any recent piercing. - Allergy/Home Medications Allergies/Adverse Reactions: Allergies Allergy/AdvReac Type Severity Reaction Status Date / Time sulfamethoxazole AdvReac Vomiting Verified 02/14/19 14:28 [From Bactrim] trimethoprim [From Bactrim] AdvReac Vomiting Verified 02/14/19 14:28 PMH/Surg Hx/FS Hx/Imm Hx Endocrine History: Other - no DM Respiratory History: Other Other Respiratory History: no asthma - Surgical History Surgery Procedure, Year, and Place: wisdom teeth removal - Family History Known Family History: Positive: Other - Depression, breast CA - Social History Alcohol Use: Occasionally Substance Use Type: Marijuana Smoking Status (MU): Current Every Day Smoker Have You Smoked in the Last Year: No - Immunization History Most Recent Influenza Vaccination: 01/2016 Most Recent Pneumonia Vaccination: never Review of Systems All Other Systems Reviewed And Are Negative: Yes Constitutional: Negative: Negative Respiratory: Negative: Shortness Of Breath Cardiovascular: Positive: Other - left breast pain. Negative: Chest Pain Is Patient Immunocompromised?: No Physical Exam Triage Information Reviewed: Yes Appearance: Well-Appearing Vital Signs: Initial Vital Signs Temp 99.3 F 02/14/19 14:25 Pulse 85 02/14/19 14:25 Resp 16 02/14/19 14:25 BP 136/103 02/14/19 14:25 Pulse Ox 99 02/14/19 14:25 Vital Signs Reviewed: Yes Eye Exam: Normal ENT: Positive: Pharynx normal Respiratory: Positive: Lungs clear, Normal breath sounds Cardiovascular: Positive: RRR, Other: - tenderness left breast, no mass or rash felt Musculoskeletal Exam: Normal Neurological Exam: Normal Psychological Exam: Normal Skin Exam: Normal Procedures - Sedation Patient Received Moderate/Deep Sedation with Procedure: No Breast Pain Course/Dx - Course Course Of Treatment: 23-year-old female presents with left breast pain for the past 3 weeks. She states noticed some redness earlier today but does not have any currently. No nipple discharge. Patient is not currently breast-feeding. She states she has not noticed any masses. She states that it feels like her breast looks little different than normal. She does have family history of breast cancer. Denies any chest pain shortness breath. Denies any recent piercing. On exam no mass. No erythema to the area. Do not feel an abscess. We'll have follow-up with VENUE ATTENDANT or primary to get an outpatient ultrasound. Patient understands and agrees with plan. - Differential Diagnoses Differential Diagnosis/HQI/PQRI: Breast Abscess, Breast Mass, Cystic Myalgia, Fibrocystic Breast Disease - Diagnoses Provider Diagnoses: Breast pain, left Discharge ED - Sign-Out/Discharge Documenting (check all that apply): Patient Departure - Discharge Plan Condition: Good Disposition: HOME Referrals: Katherine Cosme NP [Primary Care Provider] - [facility]] Fanta Iqbal MD [Medical Doctor] - Additional Instructions: follow up with primary or concrete boom pump operator Take ibuprofen as needed for pain Return to ED if develop rash, fever, or any new or worsening symptoms - Billing Disposition and Condition Condition: GOOD Disposition: Home
[2019-02-14 16:03] VITALS: BP 128/68
== END 2019-02-14 15:32 | disposition home or self-care (01) ==
LOC: ED 14:13
DX: N64.4 Mastodynia (principal); F17.200 Nicotine dependence, unspecified, uncomplicated; Z88.1 Allergy status to other antibiotic agents; Z88.2 Allergy status to sulfonamides
CPT/HCPCS: 99282

== ENCOUNTER 2019-02-17 09:31 | Inpatient (IN) | payer BC ==
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
[2019-02-17] MEDS ORDERED: Nicotine* 2MG (FRUIT FLAVOR) GUM PO ONE (10:31)
[2019-02-17 11:27] LABS: ABS Basophils 0.1 10^3/ul (0-0.2); ABS Eosinophils 0.5 10^3/ul (0-0.6); ABS Lymphocytes 2.2 10^3/ul (1.0-4.8); ABS Monocytes 0.6 10^3/ul (0-0.8); ABS Neutrophils 5.1 10^3/ul (1.5-7.7); Eosinophil % 5.8 %; Hematocrit 43 % (35-47); Hemoglobin 14.7 g/dL (12.0-16.0); Lymphocyte % 26.1 %; Mean Corpuscular HGB Conc 34 g/dL (31-36); Mean Corpuscular Hemoglobin 33 pg (27-31); Mean Corpuscular Volume 96 fL (80-97); Mean Platelet Volume 8.3 fL (7.4-10.4); Platelet Count 282 10^3/uL (150-450); Red Blood Count 4.49 10^6 /uL (3.70-4.87); Red Cell Distribution Width 13 % (10-15); White Blood Count 8.4 10^3/uL (3.5-10.8)
[2019-02-17 11:45] LABS: ALT 14 U/L (7-52); AST 18 U/L (13-39); Albumin/Globulin Ratio 2.2 (1-3); Alkaline Phosphatase 52 U/L (34-104); Anion Gap 8 mmol/L (2-11); Blood Urea Nitrogen 17 mg/dL (6-24); CO2 Carbon Dioxide 25 mmol/L (22-32); Chloride 106 mmol/L (101-111); EGFR African American 117.7 (>60); EGFR Non-African American 97.3 (>60); Globulin 2.3 g/dL (2-4); Glucose 86 mg/dL (70-100); Potassium 3.6 mmol/L (3.5-5.0); Sodium 139 mmol/L (135-145); Total Protein 7.3 g/dL (6.4-8.9)
[2019-02-17 11:49] LABS: HCG Pregnancy < 0.60 mIU/mL
[2019-02-17 12:07] LABS: TSH (Thyroid Stimulating Horm) 0.36 mcIU/mL (0.34-5.60)
[2019-02-17 12:24] LABS: Alcohol < 10 mg/dL (<10); Salicylate < 2.50 mg/dL (<30)
[2019-02-17 13:08] LABS: Acetaminophen 0 mcg/mL
[2019-02-17] MEDS ORDERED: Ibuprofen TAB* 600 MG PO ONE (16:10)
[2019-02-17] MEDS ORDERED: Acetaminophen TAB* 325 MG PO PRN (17:06)
[2019-02-17] MEDS ORDERED: Al Hydrox/Mg Hydrox/Simet LIQ* 30 ML UDC PO PRN (17:06)
[2019-02-17] MEDS: Nicotine* 2MG (FRUIT FLAVOR) GUM PO PRN ×3 (17:38→21:25)
[2019-02-17] MEDS: Nicotine Patch Removal NOTE PATCH OFF SCH (20:23)
[2019-02-17] MEDS: LORazepam TAB(*) 1 MG PO ONE (21:07)
[2019-02-18] MEDS: Nicotine* 2MG (FRUIT FLAVOR) GUM PO PRN ×3 (05:54→15:38)
[2019-02-18] MEDS: Nicotine PATCH 14 MG/24 HR* PATCH TRANSDERM SCH (07:41)
[2019-02-18] MEDS: Vitamin THERAPEUTIC TAB PO SCH (07:41)
[2019-02-18] MEDS: cloNIDine TAB* 0.1 MG PO SCH ×2 (12:05→20:32)
[2019-02-18] MEDS: Escitalopram * 10 MG TAB PO SCH (12:05)
[2019-02-18] MEDS ORDERED: LORazepam TAB(*) 1 MG PO ONE (12:25)
[2019-02-18] MEDS ORDERED: LORazepam TAB(*) 1 MG ONE (12:31)
[2019-02-18] MEDS: LORazepam TAB(*) 1 MG PO ONE (12:32)
[2019-02-18] MEDS: Ondansetron ODT TAB* 4 MG SL PRN (13:31)
[2019-02-18] MEDS: hydrOXYzine HCL TAB* 50 MG PO PRN (15:38)
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
[2019-02-18] MEDS: LORazepam TAB(*) 1 MG PO PRN (19:20)
[2019-02-18] MEDS: Nicotine Patch Removal NOTE PATCH OFF SCH (20:31)
[2019-02-19] MEDS: LORazepam TAB(*) 1 MG PO PRN ×3 (05:44→17:42)
[2019-02-19] MEDS: cloNIDine TAB* 0.1 MG PO SCH ×2 (07:31→21:49)
[2019-02-19] MEDS: Vitamin THERAPEUTIC TAB PO SCH (07:31)
[2019-02-19] MEDS: Nicotine PATCH 14 MG/24 HR* PATCH TRANSDERM SCH (07:31)
[2019-02-19] MEDS: Escitalopram * 10 MG TAB PO SCH (07:31)
[2019-02-19] MEDS: Ondansetron ODT TAB* 4 MG SL PRN (07:36)
[2019-02-19 08:43] LABS: HDL Cholesterol 70.5 mg/dL
[2019-02-19] MEDS ORDERED: Influenza VAC *QUAD* 2019-20* 0.5 ML SYRINGE IM ONE (09:00)
[2019-02-19] MEDS: Nicotine* 2MG (FRUIT FLAVOR) GUM PO PRN ×2 (13:06→18:49)
--- NOTE | 2019-02-19 16:20 | PN ---
Subjective - Subjective Date of Service: 02/19/19 Service Type: 88844 Hosp care 25 min moderate complexity Subjective: Fran feels "kind of hope." She states she feels extremely exhausted and that she's been sleeping all day. I suspect this is due to the clonidine that is ordered for the morning. That will be discontinued. There is a report that she received a tax refund of $8,000 and that the money was gone quickly. Her mom thinks she spent it on drugs, but Fran says she went on spending sprees and spend a lot of [place] and that only some of it went to drugs. She states when the money ran out, her fiance had to get a job and start working. She did say that she tried cocaine again 3-4 months ago, but she didn't like it. She states marijuana helps more as she likes to feel relaxed. Objective - General Observations Appearance: Disheveled Appears Stated Age: Yes Stature: WNL Posture: Slumped Eye Contact: Average Behavior/Activity: WNL - Interaction Observations Attitude Towards Examiner: Cooperative, Defensive, Evasive, Manipulative Stated Mood: Dysphoric, Irritable Affect: Restricted Speech Pattern/Tone: Clear Thought Process: Coherent Perception: WNL Thought Content: Preoccupation/Ruminations, Depressive, Self-Deprecatory Thought Process: Lethality: Passive Wish Hallucination Type: None Delusion Type: None - Cognitive Function Orientation: A&O x 4 Level of Consciousness: Awake, Alert, Appropriate Cognition: WNL Estimated Intelligence: Normal Insight: Difficulty Acknowledging Presence of Psyciatric Problems Judgment Within Normal Limits: No Ability to Make Reasonable Decisions: Moderately Impaired - Medication Compliance Cooperative with Inpatient Medication Regimen: Yes - Group Participation Participates in Group Activities: Yes Assessment - Assessment Merits Inpatient Hospitalization: For Immediate Safety Clinical Impression: Fran is a 23-year-old woman who comes to the hospital with suicidal ideation and high anxiety resulting in anxious habits such as skin picking and drug use. Plan - Plan Treatment Plan: Name: FRAN CANO Birthdate: 1995 [id number] d/c clonidine in the morning. Continue other meds. Give MMPI. Contact therapist. Continued Medication Management: Different Medication Medications: Current Medications Acetaminophen (Tylenol Tab*) 650 mg PO Q4H PRN PRN Reason: PAIN or TEMP > 101 F Al Hydrox/Mg Hydrox/Simethicone (Maalox Plus*) 30 ml PO Q4H PRN PRN Reason: INDIGESTION Clonidine HCl (Catapres Tab*) 0.1 mg PO BID [facility] Last Admin: 02/19/19 07:31 Dose: 0.1 mg Escitalopram Oxalate (Lexapro *) 10 mg PO DAILY [facility] Last Admin: 02/19/19 07:31 Dose: 10 mg Hydroxyzine HCl (Atarax Tab*) 50 mg PO Q6H PRN PRN Reason: anxiety Last Admin: 02/18/19 15:38 Dose: 50 mg Lorazepam (Ativan Tab(*)) 1 mg PO Q6H PRN PRN Reason: ANXIETY Last Admin: 02/19/19 11:38 Dose: 1 mg Multivitamins (Theragran Tab*) 1 tab PO DAILY [facility] Last Admin: 02/19/19 07:31 Dose: 1 tab Nicotine (Nicotine Patch 14 Mg/24 Hr*) 1 patch TRANSDERM DAILY [facility] Last Admin: 02/19/19 07:31 Dose: 1 patch Nicotine Polacrilex (Nicotine Gum*) 2 mg PO Q2H PRN PRN Reason: CRAVINGS Last Admin: 02/19/19 13:06 Dose: 2 mg Ondansetron HCl (Zofran Odt Tab*) 4 mg SL Q6H PRN PRN Reason: NAUSEA/VOMITING Last Admin: 02/19/19 07:36 Dose: 4 mg Pharmacy Profile Note (Nicotine Patch Removal Note*) 1 note PATCH OFF 2100 [facility] Last Admin: 02/18/19 20:31 Dose: 1 note - Discharge Plan Discharge Plan: Outpatient Follow Up
[2019-02-19] MEDS: hydrOXYzine HCL TAB* 50 MG PO PRN (17:42)
[2019-02-19] MEDS: Nicotine Patch Removal NOTE PATCH OFF SCH (22:03)
[2019-02-20] MEDS: LORazepam TAB(*) 1 MG PO PRN ×3 (03:18→20:17)
[2019-02-20] MEDS: hydrOXYzine HCL TAB* 50 MG PO PRN (04:38)
[2019-02-20] MEDS: Escitalopram * 10 MG TAB PO SCH (08:56)
[2019-02-20] MEDS: Vitamin THERAPEUTIC TAB PO SCH (08:56)
[2019-02-20] MEDS: Nicotine PATCH 14 MG/24 HR* PATCH TRANSDERM SCH (08:56)
[2019-02-20] MEDS: Nicotine* 2MG (FRUIT FLAVOR) GUM PO PRN ×5 (11:10→21:46)
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
[2019-02-20] MEDS: Nicotine Patch Removal NOTE PATCH OFF SCH ×2 (14:08→22:28)
[2019-02-20] MEDS ORDERED: cloNIDine TAB* 0.1 MG PO SCH (21:00)
[2019-02-21] MEDS: LORazepam TAB(*) 1 MG PO PRN ×2 (03:07→11:32)
[2019-02-21] MEDS: hydrOXYzine HCL TAB* 50 MG PO PRN (03:07)
[2019-02-21] MEDS: Nicotine PATCH 14 MG/24 HR* PATCH TRANSDERM SCH (09:39)
[2019-02-21] MEDS: Vitamin THERAPEUTIC TAB PO SCH (09:39)
[2019-02-21] MEDS: Escitalopram * 10 MG TAB PO SCH (09:40)
[2019-02-21 09:51] VITALS: BP 140/71
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
== END 2019-02-21 12:00 | disposition home or self-care (01) | DRG 755 ==
LOC: ED 09:31 → BSU 14:24
PROVIDERS: ADMIT Psychiatry & Neurology Psychiatry; ATTEND Psychiatry & Neurology Psychiatry
DX: F43.10 Post-traumatic stress disorder, unspecified (principal); R45.851 Suicidal ideations; F41.1 Generalized anxiety disorder; F32.9 Major depressive disorder, single episode, unspecified; F17.200 Nicotine dependence, unspecified, uncomplicated; F43.20 Adjustment disorder, unspecified; F60.3 Borderline personality disorder; Z23 Encounter for immunization; Z88.2 Allergy status to sulfonamides; Z88.1 Allergy status to other antibiotic agents; Z72.89 Other problems related to lifestyle; Z91.5 Personal history of self-harm; Z91.410 Personal history of adult physical and sexual abuse
CPT/HCPCS: 36415; 80053; 80061; 80320; 80329; 83036; 84443; 84702; 85025; 90686; 96130; 99222; 99232; 99238; 99284; A9270-GY; G0480

== ENCOUNTER 2020-03-10 08:23 | Inpatient (IN) ==
[2020-03-10 09:04] LABS: Urine Appearance Cloudy; Urine Bilirubin Negative (Negative); Urine Blood Negative (Negative); Urine Color Yellow; Urine Glucose Negative (Negative); Urine Ketones Negative (Negative); Urine Nitrite Negative (Negative); Urine Protein Negative (Negative); Urine Urobilinogen Negative (Negative)
[2020-03-10 09:13] LABS: Urine Bacteria Absent (Absent); Urine Red Blood Cell Trace(0-2/hpf) (Absent); Urine Squamous Epithelial Cell Present (Absent); Urine White Blood Cell Absent (Absent)
[2020-03-10 10:31] LABS: ABS Basophils 0.1 10^3/ul (0-0.2); ABS Eosinophils 0.1 10^3/ul (0-0.6); ABS Lymphocytes 1.7 10^3/ul (1.0-4.8); ABS Monocytes 0.6 10^3/ul (0-0.8); ABS Neutrophils 7.2 10^3/ul (1.5-7.7); Eosinophil % 1.4 %; Hematocrit 43 % (35-47); Hemoglobin 14.8 g/dL (12.0-16.0); Lymphocyte % 17.4 %; Mean Corpuscular HGB Conc 35 g/dL (31-36); Mean Corpuscular Hemoglobin 33 pg (27-31); Mean Corpuscular Volume 96 fL (80-97); Mean Platelet Volume 8.4 fL (7.4-10.4); Nucleated Red Blood Cells % 0.1; Platelet Count 266 10^3/uL (150-450); Red Blood Count 4.46 10^6 /uL (3.70-4.87); Red Cell Distribution Width 12 % (10-15); White Blood Count 9.7 10^3/uL (3.5-10.8)
[2020-03-10 10:48] LABS: ALT 12 U/L (7-52); AST 16 U/L (13-39); Albumin 4.7 g/dL (3.2-5.2); Alkaline Phosphatase 49 U/L (34-104); Anion Gap 6 mmol/L (2-11); BUN/Creatinine Ratio 12.5 (8-20); Blood Urea Nitrogen 9 mg/dL (6-24); CO2 Carbon Dioxide 25 mmol/L (22-32); Calcium 9.8 mg/dL (8.6-10.3); Chloride 110 mmol/L (101-111); EGFR African American 120.4 (>60); EGFR Non-African American 99.5 (>60); Globulin 2.4 g/dL (2-4); Glucose 100 mg/dL (70-100); Potassium 3.8 mmol/L (3.5-5.0); Sodium 141 mmol/L (135-145); Total Protein 7.1 g/dL (6.4-8.9)
[2020-03-10 10:54] LABS: HCG Pregnancy < 0.60 mIU/mL
[2020-03-10 10:56] LABS: Acetaminophen < 15 mcg/mL; Alcohol, S 12 mg/dL (<10); Salicylate < 2.50 mg/dL (<30)
[2020-03-10 11:03] LABS: Urine Benzodiazepine Screen None Detected (None Detect); Urine Cannabinoids Screen Presumptive Positive (None Detect); Urine Opiates Screen None Detected (None Detect)
[2020-03-10 11:11] LABS: TSH Ultra Thyroid Stim Horm 0.59 mcIU/mL (0.34-5.60)
[2020-03-10] MEDS ORDERED: Al Hydrox/Mg Hydrox/Simet LIQ 30 ML UDC PO PRN (11:23)
[2020-03-10] MEDS: Nicotine PATCH 14 MG/24 HR PATCH TRANSDERM SCH (16:23)
[2020-03-10] MEDS: Nicotine GUM 4MG FRUIT FLAVOR PO PRN (16:23)
[2020-03-11] MEDS: Nicotine PATCH 14 MG/24 HR PATCH TRANSDERM SCH (08:18)
[2020-03-11] MEDS: Nicotine GUM 4MG FRUIT FLAVOR PO PRN ×4 (08:18→18:53)
[2020-03-11] MEDS: Vitamin THERAPEUTIC TAB PO SCH (08:18)
[2020-03-12] MEDS: Nicotine PATCH 14 MG/24 HR PATCH TRANSDERM SCH (08:09)
[2020-03-12] MEDS: Vitamin THERAPEUTIC TAB PO SCH (08:10)
[2020-03-12] MEDS: Nicotine GUM 4MG FRUIT FLAVOR PO PRN ×4 (09:07→18:21)
[2020-03-13] MEDS: Nicotine GUM 4MG FRUIT FLAVOR PO PRN ×2 (06:32→14:29)
[2020-03-13] MEDS: Nicotine PATCH 14 MG/24 HR PATCH TRANSDERM SCH (07:52)
[2020-03-13] MEDS: Vitamin THERAPEUTIC TAB PO SCH (07:53)
[2020-03-14] MEDS: Vitamin THERAPEUTIC TAB PO SCH (08:08)
[2020-03-14] MEDS: Nicotine PATCH 14 MG/24 HR PATCH TRANSDERM SCH (08:09)
[2020-03-14] MEDS: Nicotine GUM 4MG FRUIT FLAVOR PO PRN ×2 (11:47→14:44)
[2020-03-15] MEDS: Nicotine PATCH 14 MG/24 HR PATCH TRANSDERM SCH (08:06)
[2020-03-15] MEDS: Vitamin THERAPEUTIC TAB PO SCH (08:06)
[2020-03-15 08:42] VITALS: BP 113/61
== END 2020-03-15 11:25 | disposition home or self-care (01) | DRG 755 ==
LOC: ED 08:23 → BSU 11:24
PROVIDERS: ADMIT Psychiatry & Neurology Psychiatry; ATTEND Psychiatry & Neurology Psychiatry